=== PATIENT | female | born 1965 | race Caucasian/White ===

== ENCOUNTER 2017-09-17 09:03 | Day surgery (SDC) | payer BC ==
[~2017-09-17 09:03] MED LIST: ACETAMINOPHEN 1,000 MG/100 ML BTL IV ONE; CEFAZOLIN 2 Gram 2 GM/50 ML BAG IVPB ONE
[2017-09-17] MEDS ORDERED: METHYLPREDNISOLONE 40MG/VIAL IM ONE (09:04)
[2017-09-17] MEDS ORDERED: MORPHINE SULFATE 5 MG/ML PFS IVP ONE (09:04)
[2017-09-17] MEDS ORDERED: PROPOFOL 10 MG/ML VIAL IV ONE (09:04)
[2017-09-17] MEDS ORDERED: HYDROCODONE/APAP 7.5/325MG TABLET PO ONE (09:04)
[2017-09-17] MEDS ORDERED: BUPIVACAINE 0.5% W/EPI MPF 30 ML VIAL IVP ONE (09:04)
[2017-09-17] MEDS ORDERED: LIDOCAINE 2% MDV (20MG/ML) 20ML VIAL IV ONE (09:04)
[2017-09-17] MEDS ORDERED: KETOROLAC 30 MG/ML VIAL IVP ONE (09:04)
[2017-09-17] MEDS ORDERED: *PACU ONLY* KETAMINE HCL 10 MG/ML (20ML) VIAL IV ONE (09:04)
--- NOTE | 2017-09-17 21:17 | Operative Note ---
DATE: 09/17/2017 PREOPERATIVE DIAGNOSIS: INTERNAL DERANGEMENT LEFT KNEE. POSTOPERATIVE DIAGNOSES: 1. SMALL GRADE 3 CHONDROMALACIA PATELLA. 2. SMALL GRADE 3 CHONDROMALACIA OF THE NOTCH. 3. MODERATE SYNOVITIS. 4. GRADE 3 CHONDROMALACIA OF THE MEDIAL FEMORAL CONDYLE CENTERED AT 45 DEGREES, ABOUT THE SIZE OF A HALF DOLLAR. 5. DEGENERATIVE TEAR INVOLVING THE POSTEROMEDIAL HORN OF THE MEDIAL MENISCUS. PROCEDURE: 1. LEFT KNEE ARTHROSCOPY WITH PARTIAL MEDIAL MENISCECTOMY WITH DEBRIDEMENT AND CHONDROPLASTY OF THE MEDIAL FEMORAL CONDYLE AND MEDIAL COMPARTMENT. 2. LEFT KNEE ARTHROSCOPY WITH LIMITED SYNOVECTOMY. STAFF SURGEON: DEBBY MURGUIA M.D. ANESTHESIA: GENERAL. PREPARATION: CHLORAPREP. INDIVIDUAL CONSIDERATIONS: NONE. PROCEDURE: The patient was taken to the Operating Room and placed supine on the operating table. She had a successful induction with general anesthetic. Her left lower extremity was prepped and draped in the usual fashion. The patient had a superior lateral inflow cannula placed. The skin was infiltrated with 0.5% Marcaine with Epinephrine prior. A clear effusion was drained prior. An inferior medial and an inferior lateral portal were made in a similar fashion. The arthroscope was introduced through the inferior lateral portal up into the pouch. The patellofemoral joint showed moderate synovitis in the pouch but not so much in the gutters. This was debrided with a shaver. There was small grade 3 change in the patella and a very tiny area of cartilage irritation and grade 3 change essentially in the notch. These were smoothed. Medially, she had what appeared to be a degenerative tear involving the posterior medial horn of the medial meniscus and this was debrided back to a stable rim with basket forceps and a shaver. She had a large ulcer on the medial femoral condyle, I would say grade 3, not down to bone, about the size maybe between a quarter and a half dollar centered at 45 degrees. This was smoothed with a shaver. In the notch, the cruciates were normal and lateral compartment structures were normal. The knee was then irrigated out with saline to remove loose floating debris. Portals were closed with kan and 20 mL of 0.25% plain Marcaine along with 5 mg of Morphine and 40 mg of DepoMedrol were injected into the knee and a sterile Bulkee compressive dressing was applied. The patient tolerated the procedure well. Needle and sponge counts were correct. Estimated blood loss was minimal and she was taken back to Recovery in good condition. There were no complications. JOB NUMBER: [id number] MTDD
== END 2017-09-17 12:50 | disposition home or self-care (01) ==
LOC: SUR 09:03
PROVIDERS: ATTEND Orthopaedic Surgery
DX: M23.222 Derangement of posterior horn of medial meniscus due to old tear or injury, left knee (principal); M22.42 Chondromalacia patellae, left knee; M65.9 Synovitis and tenosynovitis, unspecified; M94.262 Chondromalacia, left knee
CPT/HCPCS: 81025; 29881; 01400; J1885; J0690; J2270; J1030